=== PATIENT | female | born 1985 | race Caucasian/White ===

== ENCOUNTER 2020-04-30 09:23 | Inpatient (IN) | payer MEDICAID ==
[~2020-04-30] VITALS: Ht 167.6 cm; Wt 63.5 kg
[2020-04-30 10:05] LABS: BASOPHILS % (AUTO) 0.5 % (0.0-2.0); EOSINOPHILS % (AUTO) 1.5 % (1.0-6.0); HEMATOCRIT 38.4 % (36-46); HEMOGLOBIN 12.2 g/dL (12.0-16.0); LYMPHOCYTES # (AUTO) 1.8 K/uL (1.0-4.8); LYMPHOCYTES % (AUTO) 38.7 % (22.0-44.0); MEAN CORPUSCULAR HEMOGLOBIN 26.4 pg (26.0-34.0); MEAN CORPUSCULAR HGB CONC 31.8 G/dL (31.0-37.0); MEAN CORPUSCULAR VOLUME 83 fL (80-100); MONOCYTES # (AUTO) 0.6 K/uL (0.1-1.0); MONOCYTES % (AUTO) 12.9 % (2.0-9.0); NEUTROPHILS # (AUTO) 2.1 K/uL (1.8-7.7); NEUTROPHILS % (AUTO) 46.4 % (40.0-70.0); PLATELET COUNT (AUTO) 381 K/uL (150-450); RED BLOOD CELL COUNT(AUTO) 4.63 MIL/uL (4.00-5.20); RED CELL DISTRIBUTION WIDTH 20.4 % (11.5-14.5)
[2020-04-30 10:13] LABS: ANION GAP 7 mmol/L (8-16); CALCIUM, TOTAL 8.7 mg/dL (8.8-10.5); CARBON DIOXIDE 29 mmol/L (22-29); CHLORIDE 104 mmol/L (98-107); CREATININE 0.73 mg/dL (0.60-1.30); GLOMERULAR FILTR. RATE CALC > 60 mL/min (>60); GLUCOSE,RANDOM 94 mg/dL (70-110); POTASSIUM 3.3 mmol/L (3.5-5.1); SODIUM SERUM 140 mmol/L (136-145); UREA NITROGEN, BLOOD 15 mg/dL (7-18)
[2020-04-30 10:26] LABS: ALANINE AMINOTRANSFERASE 86 U/L (12-78); ALBUMIN 3.4 g/dL (3.4-5.0); ALKALINE PHOSPHATASE 60 U/L (46-116); ASPARTATE AMINOTRANSFERASE 47 U/L (15-37); BILIRUBIN,TOTAL 0.3 mg/dL (0.1-1.0); HCG,QUANTITATIVE 1 mIU/mL (0-6)
[2020-04-30] MEDS ORDERED: LOPERAMIDE HCL 2 MG CAPSULE PO PRN (16:30)
[2020-04-30] MEDS ORDERED: GuaiFENesin/D-METHORPHAN [SUGAR-FREE] 200-20MG/10 ML SYRUP UDCUP PO PRN (16:30)
[2020-04-30] MEDS ORDERED: PROMETHAZINE HCL 25 MG TABLET PO PRN (16:30)
[2020-04-30] MEDS ORDERED: MAG HYDROX/AL HYDROX/SIMETH ES 30 ML SUSPENSION UDCUP PO PRN (16:30)
[2020-04-30] MEDS ORDERED: LORazepam 2 MG TABLET PO ONE (16:30)
[2020-04-30] MEDS ORDERED: ACETAMINOPHEN 325 MG TABLET PO PRN (16:30)
[2020-04-30] MEDS ORDERED: TUBERCULIN, PURIFIED PROTEIN DERIVATIVE 5 TU/0.1 ML SYRINGE ID ONE (16:30)
[2020-04-30] MEDS ORDERED: HydrOXYzine PAMOATE 50 MG CAPSULE PO PRN (16:30)
[2020-04-30] MEDS ORDERED: MAGNESIUM HYDROXIDE SUSPENSION 30 ML UDCUP PO PRN (16:30)
[2020-04-30] MEDS ORDERED: HALOPERIDOL 5 MG TABLET PO ONE (16:30)
[2020-04-30] MEDS: THIAMINE 100 MG TABLET PO SCH (17:00)
[2020-04-30] MEDS: OLANZapine 5 MG RAPDIS TABLET PO SCH (21:00)
[2020-05-01 00:37] VITALS: BP 102/64
[2020-05-01] MEDS: POTASSIUM CHLORIDE 20 MEQ ER TABLET PO SCH ×2 (08:53→19:00)
[2020-05-01] MEDS: LORazepam 2 MG TABLET PO PRN ×2 (08:54→19:01)
[2020-05-01] MEDS: FOLIC ACID 1 MG TABLET PO SCH (08:54)
[2020-05-01] MEDS: MULTIVITAMINS WITH MINERALS, THERAPEUTIC TABLET PO SCH (08:54)
[2020-05-01] MEDS: THIAMINE 100 MG TABLET PO SCH ×2 (08:54→19:01)
[2020-05-01] MEDS ORDERED: PALIPERIDONE PALMITATE 234 MG/1.5 ML SYRINGE IM ONE (15:15)
[2020-05-01] MEDS: OLANZapine 5 MG RAPDIS TABLET PO SCH (20:27)
[2020-05-02 06:08] VITALS: BP 102/67
[2020-05-02] MEDS: MULTIVITAMINS WITH MINERALS, THERAPEUTIC TABLET PO SCH (09:00)
[2020-05-02] MEDS: FOLIC ACID 1 MG TABLET PO SCH (09:00)
[2020-05-02] MEDS: THIAMINE 100 MG TABLET PO SCH ×2 (09:00→17:00)
[2020-05-02] MEDS ORDERED: LORazepam 2 MG/ML VIAL IM ONE (10:15)
[2020-05-02] MEDS ORDERED: HALOPERIDOL LACTATE 5 MG/ML VIAL IM ONE (10:15)
[2020-05-02] MEDS ORDERED: DiphenhydrAMINE HCL 50 MG/ML VIAL IM ONE (10:15)
[2020-05-02] MEDS: OLANZapine 10 MG RAPDIS TABLET PO SCH (20:15)
[2020-05-03] MEDS: MULTIVITAMINS WITH MINERALS, THERAPEUTIC TABLET PO SCH ×2 (09:00→10:08)
[2020-05-03] MEDS: THIAMINE 100 MG TABLET PO SCH ×3 (09:00→16:19)
[2020-05-03] MEDS: FOLIC ACID 1 MG TABLET PO SCH ×2 (09:00→10:08)
[2020-05-03] MEDS: OLANZapine 5 MG RAPDIS TABLET PO PRN (10:08)
[2020-05-03] MEDS: LORazepam 2 MG TABLET PO PRN (10:08)
[2020-05-03 16:25] VITALS: BP 90/60
[2020-05-03] MEDS: OLANZapine 10 MG RAPDIS TABLET PO SCH (19:46)
[2020-05-04] MEDS: FOLIC ACID 1 MG TABLET PO SCH (08:45)
[2020-05-04] MEDS: MULTIVITAMINS WITH MINERALS, THERAPEUTIC TABLET PO SCH (08:45)
[2020-05-04] MEDS: LORazepam 2 MG TABLET PO PRN ×2 (08:45→16:23)
[2020-05-04] MEDS: THIAMINE 100 MG TABLET PO SCH ×2 (08:45→16:22)
[2020-05-04 16:12] VITALS: BP 128/71
[2020-05-04] MEDS: OLANZapine 5 MG RAPDIS TABLET PO PRN (18:41)
[2020-05-04] MEDS: DIVALPROEX SODIUM 500 MG ER TABLET PO SCH (20:26)
[2020-05-04] MEDS: ZOLPIDEM TARTRATE 10 MG TABLET PO PRN (20:27)
[2020-05-04] MEDS: OLANZapine 10 MG RAPDIS TABLET PO SCH (20:27)
[2020-05-05 05:53] VITALS: BP 103/62
[2020-05-05] MEDS: MULTIVITAMINS WITH MINERALS, THERAPEUTIC TABLET PO SCH (08:28)
[2020-05-05] MEDS: FOLIC ACID 1 MG TABLET PO SCH (08:28)
[2020-05-05] MEDS: THIAMINE 100 MG TABLET PO SCH ×2 (08:28→16:37)
[2020-05-05] MEDS: LORazepam 2 MG TABLET PO PRN ×2 (08:31→16:37)
[2020-05-05] MEDS ORDERED: PALIPERIDONE PALMITATE 156 MG/ML SYRINGE IM ONE ×2 (09:00)
[2020-05-05 16:08] VITALS: BP 105/60
[2020-05-05] MEDS: OLANZapine 10 MG RAPDIS TABLET PO SCH (20:21)
[2020-05-05] MEDS: DIVALPROEX SODIUM 500 MG ER TABLET PO SCH (20:21)
[2020-05-05] MEDS: ZOLPIDEM TARTRATE 10 MG TABLET PO PRN (20:39)
[2020-05-06 01:34] VITALS: BP 117/75
[2020-05-06] MEDS: MULTIVITAMINS WITH MINERALS, THERAPEUTIC TABLET PO SCH (08:12)
[2020-05-06] MEDS: THIAMINE 100 MG TABLET PO SCH ×2 (08:12→16:04)
[2020-05-06] MEDS: FOLIC ACID 1 MG TABLET PO SCH (08:12)
[2020-05-06] MEDS: LORazepam 2 MG TABLET PO PRN ×2 (11:42→17:02)
[2020-05-06] MEDS: OLANZapine 5 MG RAPDIS TABLET PO PRN (13:45)
[2020-05-06 16:03] VITALS: BP 142/56
[2020-05-06] MEDS: DIVALPROEX SODIUM 500 MG ER TABLET PO SCH (20:01)
[2020-05-06] MEDS: OLANZapine 10 MG RAPDIS TABLET PO SCH (20:01)
[2020-05-06] MEDS: ZOLPIDEM TARTRATE 10 MG TABLET PO PRN (20:32)
[2020-05-07 04:38] VITALS: BP 124/70
[2020-05-07 08:00] VITALS: BP 118/74
[2020-05-07 08:01] VITALS: BP 118/74
[2020-05-07] MEDS: THIAMINE 100 MG TABLET PO SCH ×2 (09:41→16:30)
[2020-05-07] MEDS: MULTIVITAMINS WITH MINERALS, THERAPEUTIC TABLET PO SCH (09:41)
[2020-05-07] MEDS: FOLIC ACID 1 MG TABLET PO SCH (09:41)
[2020-05-07] MEDS: LORazepam 2 MG TABLET PO PRN ×2 (10:00→18:36)
[2020-05-07 16:00] VITALS: BP 109/73
[2020-05-07] MEDS: OLANZapine 10 MG RAPDIS TABLET PO SCH (20:11)
[2020-05-07] MEDS: DIVALPROEX SODIUM 500 MG ER TABLET PO SCH (20:11)
[2020-05-07] MEDS: ZOLPIDEM TARTRATE 10 MG TABLET PO PRN (20:26)
[2020-05-08 00:15] VITALS: BP 102/70
[2020-05-08] MEDS: MULTIVITAMINS WITH MINERALS, THERAPEUTIC TABLET PO SCH (08:05)
[2020-05-08] MEDS: FOLIC ACID 1 MG TABLET PO SCH (08:05)
[2020-05-08] MEDS: THIAMINE 100 MG TABLET PO SCH ×2 (08:05→16:26)
[2020-05-08] MEDS: LORazepam 2 MG TABLET PO PRN ×2 (14:20→19:15)
[2020-05-08 16:00] VITALS: BP 101/60
[2020-05-08] MEDS: OLANZapine 5 MG RAPDIS TABLET PO PRN (16:26)
[2020-05-08] MEDS: OLANZapine 10 MG RAPDIS TABLET PO SCH (20:51)
[2020-05-08] MEDS: DIVALPROEX SODIUM 500 MG ER TABLET PO SCH (20:51)
[2020-05-08] MEDS: ZOLPIDEM TARTRATE 10 MG TABLET PO PRN (20:52)
[2020-05-09 00:28] VITALS: BP 100/84
[2020-05-09] MEDS: MULTIVITAMINS WITH MINERALS, THERAPEUTIC TABLET PO SCH (08:16)
[2020-05-09] MEDS: FOLIC ACID 1 MG TABLET PO SCH (08:16)
[2020-05-09] MEDS: THIAMINE 100 MG TABLET PO SCH ×2 (08:16→16:09)
[2020-05-09] MEDS ORDERED: PALIPERIDONE PALMITATE 156 MG/ML SYRINGE IM ONE (09:00)
[2020-05-09] MEDS: LORazepam 2 MG TABLET PO PRN (13:05)
[2020-05-09] MEDS: OLANZapine 5 MG RAPDIS TABLET PO PRN (13:29)
[2020-05-09] MEDS: DIVALPROEX SODIUM 500 MG ER TABLET PO SCH (20:11)
[2020-05-09] MEDS: OLANZapine 10 MG RAPDIS TABLET PO SCH (20:11)
[2020-05-09] MEDS: ZOLPIDEM TARTRATE 10 MG TABLET PO PRN (21:37)
[2020-05-10 08:08] VITALS: BP 114/80
[2020-05-10] MEDS: FOLIC ACID 1 MG TABLET PO SCH (09:11)
[2020-05-10] MEDS: THIAMINE 100 MG TABLET PO SCH (09:11)
[2020-05-10] MEDS: MULTIVITAMINS WITH MINERALS, THERAPEUTIC TABLET PO SCH (09:11)
[2020-05-10] MEDS: FLUoxetine HCL 20 MG CAPSULE PO SCH (09:12)
[2020-05-10] MEDS: LORazepam 2 MG TABLET PO PRN ×3 (09:12→18:02)
[2020-05-10] MEDS: NICOTINE 21 MG/24 HOUR PATCH TD SCH (09:18)
[2020-05-10 16:00] VITALS: BP 107/71
[2020-05-10] MEDS: DIVALPROEX SODIUM 500 MG ER TABLET PO SCH (19:53)
[2020-05-10] MEDS: OLANZapine 10 MG RAPDIS TABLET PO SCH (19:56)
[2020-05-10] MEDS: ZOLPIDEM TARTRATE 10 MG TABLET PO PRN (20:34)
[2020-05-11 06:33] VITALS: BP 116/80
[2020-05-11 08:17] VITALS: BP 112/74
[2020-05-11] MEDS: NALTREXONE HCL 50 MG TABLET PO SCH (12:12)
[2020-05-11] MEDS: FLUoxetine HCL 20 MG CAPSULE PO SCH (12:12)
[2020-05-11] MEDS: LORazepam 2 MG TABLET PO PRN ×2 (12:12→16:26)
[2020-05-11] MEDS: MULTIVITAMINS WITH MINERALS, THERAPEUTIC TABLET PO SCH (12:13)
[2020-05-11] MEDS: NICOTINE 21 MG/24 HOUR PATCH TD SCH (12:13)
[2020-05-11] MEDS: OLANZapine 10 MG RAPDIS TABLET PO SCH (20:12)
[2020-05-11] MEDS: DIVALPROEX SODIUM 500 MG ER TABLET PO SCH (20:12)
[2020-05-11] MEDS: ZOLPIDEM TARTRATE 10 MG TABLET PO PRN (20:33)
[2020-05-12 00:40] VITALS: BP 104/78
[2020-05-12] MEDS: NALTREXONE HCL 50 MG TABLET PO SCH (10:04)
[2020-05-12] MEDS: MULTIVITAMINS WITH MINERALS, THERAPEUTIC TABLET PO SCH (10:04)
[2020-05-12] MEDS: NICOTINE 21 MG/24 HOUR PATCH TD SCH (10:04)
[2020-05-12] MEDS: LORazepam 2 MG TABLET PO PRN ×2 (10:04→16:25)
[2020-05-12] MEDS: FLUoxetine HCL 20 MG CAPSULE PO SCH (10:04)
[2020-05-12 16:09] VITALS: BP 100/60
[2020-05-12] MEDS: OLANZapine 10 MG RAPDIS TABLET PO SCH (20:01)
[2020-05-12] MEDS: DIVALPROEX SODIUM 500 MG ER TABLET PO SCH (20:06)
[2020-05-12] MEDS: ZOLPIDEM TARTRATE 10 MG TABLET PO PRN (20:55)
[2020-05-13 00:08] VITALS: BP 102/68
[2020-05-13 08:00] VITALS: BP 116/74
[2020-05-13] MEDS: NALTREXONE HCL 50 MG TABLET PO SCH (10:07)
[2020-05-13] MEDS: MULTIVITAMINS WITH MINERALS, THERAPEUTIC TABLET PO SCH (10:08)
[2020-05-13] MEDS: NICOTINE 21 MG/24 HOUR PATCH TD SCH (10:08)
[2020-05-13] MEDS: FLUoxetine HCL 20 MG CAPSULE PO SCH (10:08)
[2020-05-13] MEDS: LORazepam 2 MG TABLET PO PRN (12:18)
[2020-05-13 16:11] VITALS: BP 100/60
[2020-05-13] MEDS: DIVALPROEX SODIUM 500 MG ER TABLET PO SCH (20:20)
[2020-05-13] MEDS: OLANZapine 10 MG RAPDIS TABLET PO SCH (20:20)
[2020-05-13] MEDS: ZOLPIDEM TARTRATE 10 MG TABLET PO PRN (20:20)
[2020-05-14 00:45] VITALS: BP 111/64
[2020-05-14 08:08] LABS: HEMOGLOBIN A1C 5.1 % (3.8-5.6)
[2020-05-14 08:22] LABS: CHOL/HDL RATIO 2.1 (3.9-5.7); CHOLESTEROL 113 mg/dL (131-200); HDL CHOLESTEROL 54 mg/dL (40-60); LDL CHOL (CALC.) 56 mg/dL (0-130); POTASSIUM 4.3 mmol/L (3.5-5.1); THYROID STIMULATING HORMONE 1.13 uIU/mL (0.36-3.74); VALPROIC ACID 73 mcg/mL (50-100)
[2020-05-14 08:33] LABS: TRIGLYCERIDES < 15 mg/dL (15-150)
[2020-05-14] MEDS: FLUoxetine HCL 20 MG CAPSULE PO SCH (09:33)
[2020-05-14] MEDS: MULTIVITAMINS WITH MINERALS, THERAPEUTIC TABLET PO SCH (09:33)
[2020-05-14] MEDS: NICOTINE 21 MG/24 HOUR PATCH TD SCH (09:33)
[2020-05-14] MEDS: NALTREXONE HCL 50 MG TABLET PO SCH (09:33)
[2020-05-14] MEDS ORDERED: DIVA-80 PO (13:31)
[2020-05-14] MEDS ORDERED: OLAN10TA22 PO (13:31)
[2020-05-14] MEDS ORDERED: FLUO-191 PO (13:31)
[2020-05-14] MEDS ORDERED: NALT50TA PO (13:31)
[2020-05-14 16:01] VITALS: BP 110/70
== END 2020-05-14 16:00 | disposition home or self-care (01) | DRG 885 ==
LOC: EMS 09:24 → B3A 16:39
PROVIDERS: ADMIT Psychiatry & Neurology Psychiatry; ATTEND Psychiatry & Neurology Psychiatry
DX: F25.9 Schizoaffective disorder, unspecified (principal); F12.10 Cannabis abuse, uncomplicated; F15.10 Other stimulant abuse, uncomplicated; F17.210 Nicotine dependence, cigarettes, uncomplicated; Z65.3 Problems related to other legal circumstances; Z91.19 Patient's noncompliance with other medical treatment and regimen; Z59.0 Homelessness
CPT/HCPCS: 83036; 84132; 84443; 86592; G0480; J1200; J1630; J2060

== ENCOUNTER 2020-06-17 21:13 | Emergency (ER) | payer MEDICAID ==
[~2020-06-17] VITALS: Ht 162.6 cm; Wt 68.1 kg
[~2020-06-17 21:13] MED LIST: DIVA-80 PO; FLUO-191 PO; NALT50TA PO; OLAN10TA22 PO
[2020-06-17 22:58] LABS: BASOPHILS % (AUTO) 0.3 % (0.0-2.0); EOSINOPHILS % (AUTO) 1.3 % (1.0-6.0); HEMATOCRIT 36.4 % (36-46); HEMOGLOBIN 12.2 g/dL (12.0-16.0); LYMPHOCYTES # (AUTO) 2.3 K/uL (1.0-4.8); LYMPHOCYTES % (AUTO) 27.5 % (22.0-44.0); MEAN CORPUSCULAR HEMOGLOBIN 29.5 pg (26.0-34.0); MEAN CORPUSCULAR HGB CONC 33.5 G/dL (31.0-37.0); MEAN CORPUSCULAR VOLUME 88 fL (80-100); MONOCYTES # (AUTO) 1.2 K/uL (0.1-1.0); MONOCYTES % (AUTO) 14.2 % (2.0-9.0); NEUTROPHILS # (AUTO) 4.7 K/uL (1.8-7.7); NEUTROPHILS % (AUTO) 56.7 % (40.0-70.0); PLATELET COUNT (AUTO) 315 K/uL (150-450); RED BLOOD CELL COUNT(AUTO) 4.13 MIL/uL (4.00-5.20); RED CELL DISTRIBUTION WIDTH 15.7 % (11.5-14.5)
[2020-06-17 22:59] LABS: APPEARANCE,URINE CLOUDY (CLEAR); BILIRUBIN,URINE NEGATIVE (NEGATIVE); GLUCOSE, URINE (UA) NEGATIVE (NEGATIVE); KETONES,URINE NEGATIVE (NEGATIVE); LEUKOCYTE ESTERASE ,URINE SMALL (NEGATIVE); NITRATE,URINE POSITIVE (NEGATIVE); OCCULT BLOOD,URINE TRACE (NEGATIVE); PROTEIN,URINE POS 1+ (NEGATIVE); UROBILINOGEN,URINE 0.2 mg/dL (<=1.0)
[2020-06-17 23:06] LABS: AMPHET/METH SCREEN,URINE POSITIVE (NEGATIVE); BARBITURATE SCREEN, URINE NEGATIVE (NEGATIVE); BENZODIAZEPINES SCREEN,URINE NEGATIVE (NEGATIVE); CANNABINOID SCREEN,URINE NEGATIVE (NEGATIVE); COCAINE SCREEN,URINE NEGATIVE (NEGATIVE); METHADONE SCREEN, URINE NEGATIVE (NEGATIVE); OPIATE SCREEN,URINE POSITIVE (NEGATIVE)
[2020-06-17 23:08] LABS: PHENCYCLIDINE SCREEN,URINE NEGATIVE (NEGATIVE)
[2020-06-17 23:15] LABS: BACTERIA,URINE Many /HPF (None Seen); RBC,URINE 0-2 /HPF (0-2)
[2020-06-17 23:16] LABS: CALCIUM OXALATE CRYSTALS,UR Many /LPF (None Seen); SQUAMOUS EPITHELIAL CELL,UR Many /LPF (None Seen)
[2020-06-17 23:16] LABS: ANION GAP 2 mmol/L (8-16); CALCIUM, TOTAL 8.5 mg/dL (8.8-10.5); CARBON DIOXIDE 33 mmol/L (22-29); CHLORIDE 103 mmol/L (98-107); CREATININE 0.96 mg/dL (0.60-1.30); GLOMERULAR FILTR. RATE CALC > 60 mL/min (>60); GLUCOSE,RANDOM 80 mg/dL (70-110); POTASSIUM 3.7 mmol/L (3.5-5.1); SODIUM SERUM 138 mmol/L (136-145); UREA NITROGEN, BLOOD 18 mg/dL (7-18)
[2020-06-17 23:27] LABS: ALANINE AMINOTRANSFERASE 86 U/L (12-78); ALBUMIN 3.5 g/dL (3.4-5.0); ALKALINE PHOSPHATASE 60 U/L (46-116); ASPARTATE AMINOTRANSFERASE 58 U/L (15-37); BILIRUBIN,TOTAL 0.2 mg/dL (0.1-1.0); HCG,QUANTITATIVE 1 mIU/mL (0-6); TOTAL PROTEIN, SERUM 7.3 g/dL (6.4-8.2)
[2020-06-17 23:52] LABS: VALPROIC ACID < 3 mcg/mL (50-100)
[2020-06-18] MEDS ORDERED: CefTRIAXone SODIUM 1 GM/VIAL IM ONE
[2020-06-18] MEDS ORDERED: AZITHROMYCIN 500 MG TABLET PO ONE
[2020-06-18] MEDS ORDERED: CefTRIAXone 1 GM/DEXTROSE 50 ML IV ONE (01:00)
[2020-06-18 03:45] VITALS: BP 115/78
== END 2020-06-18 03:44 | disposition home or self-care (01) ==
LOC: EMS 21:14
DX: T40.1X1A Poisoning by heroin, accidental (unintentional), initial encounter (principal); F25.9 Schizoaffective disorder, unspecified; F15.10 Other stimulant abuse, uncomplicated; N34.2 Other urethritis; F17.210 Nicotine dependence, cigarettes, uncomplicated; Y92.89 Other specified places as the place of occurrence of the external cause
CPT/HCPCS: 36415; 80053; 80164; 80307; 81001; 83605; 84702; 85025; 87077; 87086; 93005; 96365; 99285; 99406; G0480; J0696

== ENCOUNTER 2020-09-09 21:23 | Emergency (ER) | payer MEDICAID ==
[~2020-09-09] VITALS: Ht 162.6 cm; Wt 59.1 kg
[2020-09-10 00:23] LABS: ANION GAP 6 mmol/L (8-16); CARBON DIOXIDE 28 mmol/L (22-29); CHLORIDE 104 mmol/L (98-107); CREATININE 0.98 mg/dL (0.60-1.30); GLOMERULAR FILTR. RATE CALC > 60 mL/min (>60); GLUCOSE,RANDOM 84 mg/dL (70-110); POTASSIUM 3.8 mmol/L (3.5-5.1); SODIUM SERUM 138 mmol/L (136-145); UREA NITROGEN, BLOOD 12 mg/dL (7-18)
[2020-09-10 00:28] LABS: ALANINE AMINOTRANSFERASE 42 U/L (12-78); ALKALINE PHOSPHATASE 71 U/L (46-116); ASPARTATE AMINOTRANSFERASE 33 U/L (15-37); BILIRUBIN,TOTAL 0.4 mg/dL (0.1-1.0); TOTAL PROTEIN, SERUM 7.8 g/dL (6.4-8.2)
[2020-09-10 07:39] VITALS: BP 126/70
== END 2020-09-10 09:00 | disposition home or self-care (01) ==
LOC: EMS 21:23
DX: F15.10 Other stimulant abuse, uncomplicated (principal); F22 Delusional disorders; F20.9 Schizophrenia, unspecified; F11.90 Opioid use, unspecified, uncomplicated
CPT/HCPCS: G0480

== ENCOUNTER 2020-09-16 09:24 | Emergency (ER) | payer MEDICAID | END 2020-09-16 10:08 | disposition left against medical advice (07) | LOC: EMS 09:25 | DX: R45.851 Suicidal ideations (principal); Z53.21 Procedure and treatment not carried out due to patient leaving prior to being seen by health care provider ==

== ENCOUNTER 2021-01-26 19:12 | Emergency (ER) | payer MEDICAID, OTHER ==
[~2021-01-26] VITALS: Ht 162.6 cm; Wt 70.0 kg
[2021-01-26 19:29] VITALS: BP 119/61
== END 2021-01-26 21:32 | disposition left against medical advice (07) ==
LOC: EMS 19:16
DX: R13.10 Dysphagia, unspecified (principal); Z53.21 Procedure and treatment not carried out due to patient leaving prior to being seen by health care provider

== ENCOUNTER 2021-01-28 22:28 | Emergency (ER) | payer OTHER ==
[~2021-01-28] VITALS: Ht 162.6 cm; Wt 72.7 kg
[2021-01-28 22:30] VITALS: BP 128/92
== END 2021-01-28 23:09 | disposition left against medical advice (07) ==
LOC: EMS 22:28
DX: R22.0 Localized swelling, mass and lump, head (principal); Z53.21 Procedure and treatment not carried out due to patient leaving prior to being seen by health care provider

== ENCOUNTER 2021-05-06 23:39 | Emergency (ER) | payer OTHER ==
[~2021-05-06] VITALS: Ht 162.6 cm; Wt 59.1 kg
[2021-05-06 23:42] VITALS: BP 143/87
[2021-05-07 00:32] LABS: APPEARANCE,URINE CLOUDY (CLEAR); BILIRUBIN,URINE NEGATIVE (NEGATIVE); GLUCOSE, URINE (UA) NEGATIVE (NEGATIVE); KETONES,URINE NEGATIVE (NEGATIVE); LEUKOCYTE ESTERASE ,URINE SMALL (NEGATIVE); NITRATE,URINE POSITIVE (NEGATIVE); OCCULT BLOOD,URINE NEGATIVE (NEGATIVE); PROTEIN,URINE NEGATIVE (NEGATIVE)
[2021-05-07 00:56] LABS: BACTERIA,URINE Many /HPF (None Seen); RBC,URINE None Seen /HPF (0-2); SQUAMOUS EPITHELIAL CELL,UR Few /LPF (None Seen)
== END 2021-05-07 04:15 | disposition left against medical advice (07) ==
LOC: EMS 23:40
DX: R30.9 Painful micturition, unspecified (principal); Z53.21 Procedure and treatment not carried out due to patient leaving prior to being seen by health care provider
CPT/HCPCS: 81001; 84703; 87077; 87086; 87186

== ENCOUNTER 2021-09-17 12:23 | Emergency (ER) | payer OTHER ==
[~2021-09-17] VITALS: Ht 157.5 cm; Wt 68.2 kg
[2021-09-17] MEDS ORDERED: SODIUM CHLORIDE 0.9% 1,000 ML IV ONE (12:45)
[2021-09-17 12:54] LABS: BASOPHILS % (AUTO) 0.5 % (0.0-2.0); EOSINOPHILS % (AUTO) 1.7 % (1.0-6.0); HEMATOCRIT 39.2 % (36-46); LYMPHOCYTES # (AUTO) 1.9 K/uL (1.0-4.8); LYMPHOCYTES % (AUTO) 40.6 % (22.0-44.0); MEAN CORPUSCULAR HGB CONC 33.1 G/dL (31.0-37.0); MEAN CORPUSCULAR VOLUME 91 fL (80-100); MONOCYTES # (AUTO) 0.7 K/uL (0.1-1.0); MONOCYTES % (AUTO) 14.9 % (2.0-9.0); NEUTROPHILS % (AUTO) 42.3 % (40.0-70.0); PLATELET COUNT (AUTO) 345 K/uL (150-450); RED BLOOD CELL COUNT(AUTO) 4.33 MIL/uL (4.00-5.20); RED CELL DISTRIBUTION WIDTH 13.8 % (11.5-14.5)
[2021-09-17 12:56] LABS: COVID AG,FIA SOURCE NASOPHARYNGEAL
[2021-09-17 13:06] LABS: ANION GAP 6 mmol/L (8-16); CALCIUM, TOTAL 8.4 mg/dL (8.8-10.5); CARBON DIOXIDE 29 mmol/L (22-29); CHLORIDE 111 mmol/L (98-107); CREATININE 0.77 mg/dL (0.60-1.30); GLOMERULAR FILTR. RATE CALC > 60 mL/min (>60); GLUCOSE,RANDOM 83 mg/dL (70-110); SODIUM SERUM 146 mmol/L (136-145); UREA NITROGEN, BLOOD 13 mg/dL (7-18)
[2021-09-17 13:13] LABS: APPEARANCE,URINE CLEAR (CLEAR); BILIRUBIN,URINE NEGATIVE (NEGATIVE); GLUCOSE, URINE (UA) NEGATIVE (NEGATIVE); KETONES,URINE NEGATIVE (NEGATIVE); LEUKOCYTE ESTERASE ,URINE NEGATIVE (NEGATIVE); NITRATE,URINE NEGATIVE (NEGATIVE); OCCULT BLOOD,URINE NEGATIVE (NEGATIVE); PH,URINE 6.5 (5.0-8.0); PROTEIN,URINE POS 1+ (NEGATIVE)
[2021-09-17 13:17] LABS: AMPHET/METH SCREEN,URINE POSITIVE (NEGATIVE); BARBITURATE SCREEN, URINE NEGATIVE (NEGATIVE); BENZODIAZEPINES SCREEN,URINE NEGATIVE (NEGATIVE); CANNABINOID SCREEN,URINE POSITIVE (NEGATIVE); COCAINE SCREEN,URINE NEGATIVE (NEGATIVE); METHADONE SCREEN, URINE NEGATIVE (NEGATIVE); OPIATE SCREEN,URINE POSITIVE (NEGATIVE); PHENCYCLIDINE SCREEN,URINE POSITIVE (NEGATIVE)
[2021-09-17 13:20] LABS: BACTERIA,URINE Few /HPF (None Seen); FINE GRANULAR CASTS,URINE 0-2 /LPF (None Seen); RBC,URINE 0-2 /HPF (0-2); SQUAMOUS EPITHELIAL CELL,UR Few /LPF (None Seen); WBC,URINE 0-2 /HPF (0-5)
[2021-09-17 13:22] LABS: B-TYPE NATRIURETIC PEPTIDE 21 pg/mL (0-100)
[2021-09-17 13:31] LABS: ALANINE AMINOTRANSFERASE 78 U/L (12-78); ALBUMIN 3.2 g/dL (3.4-5.0); ALKALINE PHOSPHATASE 66 U/L (46-116); ASPARTATE AMINOTRANSFERASE 48 U/L (15-37); BILIRUBIN,TOTAL 0.3 mg/dL (0.1-1.0); CREATINE KINASE, TOTAL ONLY 108 U/L (26-192); HCG,QUANTITATIVE < 1 mIU/mL (0-6); TOTAL PROTEIN, SERUM 6.6 g/dL (6.4-8.2)
[2021-09-17 17:42] VITALS: BP 124/98
== END 2021-09-17 17:35 | disposition home or self-care (01) ==
LOC: EMS 12:23
DX: T40.601A Poisoning by unspecified narcotics, accidental (unintentional), initial encounter (principal); J45.909 Unspecified asthma, uncomplicated; F20.9 Schizophrenia, unspecified; F12.90 Cannabis use, unspecified, uncomplicated; F19.90 Other psychoactive substance use, unspecified, uncomplicated; Z20.822 Contact with and (suspected) exposure to COVID-19; Z59.00 Homelessness unspecified; Y92.89 Other specified places as the place of occurrence of the external cause
CPT/HCPCS: 36415; 71045; 80053; 80307; 81001; 81025; 82550; 83880; 84484; 84702; 85025; 87426; 93005; 96360; 99285; G0480; J7030

== ENCOUNTER 2022-01-01 00:57 | Emergency (ER) | payer OTHER ==
[~2022-01-01] VITALS: Ht 162.6 cm; Wt 65.9 kg
[2022-01-01 01:10] VITALS: BP 127/82
[2022-01-01 03:23] LABS: APPEARANCE,URINE TURBID (CLEAR); BILIRUBIN,URINE NEGATIVE (NEGATIVE); GLUCOSE, URINE (UA) NEGATIVE (NEGATIVE); KETONES,URINE NEGATIVE (NEGATIVE); LEUKOCYTE ESTERASE ,URINE LARGE (NEGATIVE); NITRATE,URINE POSITIVE (NEGATIVE); OCCULT BLOOD,URINE NEGATIVE (NEGATIVE); PROTEIN,URINE NEGATIVE (NEGATIVE); SPECIFIC GRAVITIY, URINE 1.018 (1.003-1.030); UROBILINOGEN,URINE <=1.0 mg/dL (<=1.0)
[2022-01-01 03:34] LABS: BACTERIA,URINE Many /HPF (None Seen); RBC,URINE None Seen /HPF (0-2)
[2022-01-01 03:35] LABS: AMORPHOUS SEDIMENT,UR Many /LPF (None Seen); SQUAMOUS EPITHELIAL CELL,UR Few /LPF (None Seen)
== END 2022-01-01 02:30 | disposition left against medical advice (07) ==
LOC: EMS 00:59
DX: R82.90 Unspecified abnormal findings in urine (principal); J45.909 Unspecified asthma, uncomplicated; F20.9 Schizophrenia, unspecified; F17.210 Nicotine dependence, cigarettes, uncomplicated; F12.90 Cannabis use, unspecified, uncomplicated; F19.90 Other psychoactive substance use, unspecified, uncomplicated; F11.90 Opioid use, unspecified, uncomplicated
CPT/HCPCS: 81001; 84703; 87086; 99283

== ENCOUNTER 2022-01-13 16:47 | Emergency (ER) | payer OTHER ==
[~2022-01-13] VITALS: Ht 162.6 cm; Wt 58.1 kg
[2022-01-13 17:35] LABS: BASOPHILS % (AUTO) 0.2 % (0.0-2.0); EOSINOPHILS % (AUTO) 0.4 % (1.0-6.0); HEMOGLOBIN 13.8 g/dL (12.0-16.0); LYMPHOCYTES # (AUTO) 1.6 K/uL (1.0-4.8); LYMPHOCYTES % (AUTO) 22.2 % (22.0-44.0); MEAN CORPUSCULAR HEMOGLOBIN 29.8 pg (26.0-34.0); MEAN CORPUSCULAR HGB CONC 32.8 G/dL (31.0-37.0); MEAN CORPUSCULAR VOLUME 91 fL (80-100); MONOCYTES # (AUTO) 0.5 K/uL (0.1-1.0); MONOCYTES % (AUTO) 7.5 % (2.0-9.0); NEUTROPHILS % (AUTO) 69.7 % (40.0-70.0); PLATELET COUNT (AUTO) 379 K/uL (150-450); RED BLOOD CELL COUNT(AUTO) 4.61 MIL/uL (4.00-5.20); RED CELL DISTRIBUTION WIDTH 13.8 % (11.5-14.5)
[2022-01-13 17:46] LABS: ANION GAP 4 mmol/L (8-16); CALCIUM, TOTAL 8.7 mg/dL (8.8-10.5); CARBON DIOXIDE 32 mmol/L (22-29); CHLORIDE 105 mmol/L (98-107); CREATININE 0.77 mg/dL (0.60-1.30); GLOMERULAR FILTR. RATE CALC > 60 mL/min (>60); GLUCOSE,RANDOM 112 mg/dL (70-110); POTASSIUM 3.8 mmol/L (3.5-5.1); SODIUM SERUM 141 mmol/L (136-145); UREA NITROGEN, BLOOD 13 mg/dL (7-18)
[2022-01-13 17:51] LABS: ALANINE AMINOTRANSFERASE 81 U/L (12-78); ALBUMIN 3.7 g/dL (3.4-5.0); ALKALINE PHOSPHATASE 69 U/L (46-116); ASPARTATE AMINOTRANSFERASE 73 U/L (15-37); BILIRUBIN,TOTAL 0.5 mg/dL (0.1-1.0); TOTAL PROTEIN, SERUM 7.7 g/dL (6.4-8.2)
[2022-01-13 18:26] LABS: COVID AG,FIA SOURCE NASOPHARYNGEAL
[2022-01-13 18:38] LABS: ACETAMINOPHEN < 2 mcg/mL (10-30); SALICYLATE 0.9 mg/dL (2.8-20.0)
[2022-01-13] MEDS ORDERED: ACETAMINOPHEN 500 MG TABLET PO ONE (20:15)
[2022-01-13 22:22] VITALS: BP 108/75
== END 2022-01-13 23:30 | disposition short-term general hospital (02) ==
LOC: EMS 16:56
DX: T40.601A Poisoning by unspecified narcotics, accidental (unintentional), initial encounter (principal); R09.02 Hypoxemia; J45.909 Unspecified asthma, uncomplicated; F20.9 Schizophrenia, unspecified; F17.210 Nicotine dependence, cigarettes, uncomplicated; F12.90 Cannabis use, unspecified, uncomplicated; F19.90 Other psychoactive substance use, unspecified, uncomplicated; Z20.822 Contact with and (suspected) exposure to COVID-19; Y92.89 Other specified places as the place of occurrence of the external cause
CPT/HCPCS: 36415; 71045; 80053; 85025; 87426; 93005; 99291; G0480; G0481

== ENCOUNTER 2022-04-10 01:15 | Emergency (ER) | payer OTHER ==
[~2022-04-10] VITALS: Ht 162.6 cm; Wt 59.0 kg
[2022-04-10] MEDS ORDERED: ACETAMINOPHEN 325 MG TABLET PO ONE (01:45)
[2022-04-10] MEDS ORDERED: MAG HYDROX/AL HYDROX/SIMETH 30 ML SUSP UDCUP PO ONE (01:45)
[2022-04-10] MEDS ORDERED: FAMOTIDINE 20 MG TABLET PO ONE (01:45)
[2022-04-10] MEDS ORDERED: ONDANSETRON HCL 4 MG TABLET PO ONE (01:45)
[2022-04-10 02:00] LABS: COVID AG,FIA SOURCE NASOPHARYNGEAL
[2022-04-10 02:03] LABS: BASOPHILS % (AUTO) 0.4 % (0.0-2.0); EOSINOPHILS % (AUTO) 2.7 % (1.0-6.0); HEMATOCRIT 37.4 % (36-46); HEMOGLOBIN 12.5 g/dL (12.0-16.0); LYMPHOCYTES # (AUTO) 1.9 K/uL (1.0-4.8); LYMPHOCYTES % (AUTO) 45.8 % (22.0-44.0); MEAN CORPUSCULAR HEMOGLOBIN 29.3 pg (26.0-34.0); MEAN CORPUSCULAR HGB CONC 33.5 G/dL (31.0-37.0); MEAN CORPUSCULAR VOLUME 87 fL (80-100); MONOCYTES # (AUTO) 0.7 K/uL (0.1-1.0); NEUTROPHILS # (AUTO) 1.4 K/uL (1.8-7.7); NEUTROPHILS % (AUTO) 34.1 % (40.0-70.0); PLATELET COUNT (AUTO) 284 K/uL (150-450); RED BLOOD CELL COUNT(AUTO) 4.28 MIL/uL (4.00-5.20); RED CELL DISTRIBUTION WIDTH 14.3 % (11.5-14.5)
[2022-04-10 02:11] LABS: ANION GAP 5 mmol/L (8-16); CALCIUM, TOTAL 8.8 mg/dL (8.8-10.5); CARBON DIOXIDE 31 mmol/L (22-29); CHLORIDE 104 mmol/L (98-107); CREATININE 0.82 mg/dL (0.60-1.30); GLUCOSE,RANDOM 128 mg/dL (70-110); POTASSIUM 3.8 mmol/L (3.5-5.1); SODIUM SERUM 140 mmol/L (136-145); UREA NITROGEN, BLOOD 18 mg/dL (7-18)
[2022-04-10 02:21] LABS: GLOMERULAR FILTR. RATE CALC > 60 mL/min (>60)
[2022-04-10 02:22] LABS: ALANINE AMINOTRANSFERASE 52 U/L (12-78); ALBUMIN 3.2 g/dL (3.4-5.0); ALKALINE PHOSPHATASE 60 U/L (46-116); ASPARTATE AMINOTRANSFERASE 37 U/L (15-37); BILIRUBIN,TOTAL 0.2 mg/dL (0.1-1.0); HCG,QUANTITATIVE < 1 mIU/mL (0-6); LIPASE 87 U/L (73-393); PHOSPHORUS 5.9 mg/dL (2.5-4.9); TOTAL PROTEIN, SERUM 6.8 g/dL (6.4-8.2)
[2022-04-10 05:18] VITALS: BP 119/66
[2022-04-10] MEDS ORDERED: IBUP-2070 PO (05:47)
== END 2022-04-10 06:00 | disposition home or self-care (01) ==
LOC: EMS 01:16
DX: R20.2 Paresthesia of skin (principal); R10.9 Unspecified abdominal pain; J45.909 Unspecified asthma, uncomplicated; F20.9 Schizophrenia, unspecified; F11.90 Opioid use, unspecified, uncomplicated; F12.90 Cannabis use, unspecified, uncomplicated; F15.90 Other stimulant use, unspecified, uncomplicated; Z98.890 Other specified postprocedural states; Z20.822 Contact with and (suspected) exposure to COVID-19
CPT/HCPCS: 99284; 87426; 80053; 83690; 83735; 84100; 84702; 85025; 36415; Q0162

== ENCOUNTER 2023-08-16 17:10 | Emergency (ER) | payer OTHER ==
[~2023-08-16] VITALS: Ht 165.1 cm; Wt 53.1 kg
[~2023-08-16 17:10] MED LIST changes: -DIVA-80 PO; -FLUO-191 PO; +IBUP-1492 PO; -NALT50TA PO; -OLAN10TA22 PO
[2023-08-16 18:25] VITALS: TEMP 97.6
[2023-08-16] MEDS ORDERED: SODIUM CHLORIDE 0.9% 1,000 ML IV ONE (19:00)
[2023-08-16] MEDS ORDERED: ACETAMINOPHEN 500 MG TABLET PO ONE (19:00)
[2023-08-16] MEDS ORDERED: LORazepam 2 MG/ML VIAL IVP ONE (19:00)
[2023-08-16 20:01] VITALS: BP 146/104; PULSE 105; RESP 16
== END 2023-08-16 21:00 ==
LOC: EMS 17:12
DX: S09.90XA Unspecified injury of head, initial encounter (principal); F15.10 Other stimulant abuse, uncomplicated; J45.909 Unspecified asthma, uncomplicated; F20.9 Schizophrenia, unspecified; F17.210 Nicotine dependence, cigarettes, uncomplicated; F12.90 Cannabis use, unspecified, uncomplicated; X58.XXXA Exposure to other specified factors, initial encounter; Y93.89 Activity, other specified; Y92.89 Other specified places as the place of occurrence of the external cause; Y99.8 Other external cause status
CPT/HCPCS: 99285; 96374; 70450; 96361; J2060; J7030